=== PATIENT | male | born 1945 | race Caucasian/White ===

== ENCOUNTER 2017-07-21 17:01 | Observation (INO) | payer MEDICARE ==
[2017-07-21] MEDS ORDERED: NS 0.9% 1000 ML* 1,000 ML IV ONE (17:14)
[2017-07-21] MEDS ORDERED: Tetan/Diph/Pertus SYR(Tdap)* 0.5 ML SYR(BOOSTRIX) use SYR IM ONE (17:17)
[2017-07-21 17:59] LABS: Hematocrit 43 % (42-52); Hemoglobin 14.6 g/dl (14.0-18.0); Mean Corpuscular HGB Conc 34 g/dl (31-36); Mean Corpuscular Hemoglobin 32 pg (27-31); Mean Corpuscular Volume 95 fL (80-94); Mean Platelet Volume 10 um3 (7.4-10.4); Red Blood Count 4.52 10^6/ul (4.0-5.4); Red Cell Distribution Width 13 % (10.5-15)
[2017-07-21 18:07] LABS: Albumin 4.4 g/dL (3.2-5.2); BUN/Creatinine Ratio 19.2 (8-20); Calcium 9.2 mg/dL (8.6-10.3); EGFR African American 90.8 (>60); EGFR Non-African American 70.6 (>60); Globulin 3.1 g/dL (2-4); Magnesium 1.8 mg/dL (1.9-2.7); Potassium 3.8 mmol/L (3.5-5.0); Total Bilirubin 0.7 mg/dL (0.2-1.0); Total Protein 7.5 g/dL (6.4-8.9)
[2017-07-21 18:08] LABS: Troponin I 0.03 ng/mL (<0.04)
--- NOTE | 2017-07-21 18:16 | RAD ---
INDICATION: Head injury. COMPARISON: There are no prior studies available for comparison. TECHNIQUE: Contiguous axial sections of the brain were obtained from the skull base to the vertex without contrast. FINDINGS: The ventricles, cisterns and sulci are enlarged consistent with diffuse atrophy. There are multiple focal areas of decreased density in the subcortical and periventricular white matter suggestive of moderate to severe chronic small vessel ischemic changes. There appears to be old lacunar infarcts in the right caudate and lentiform nuclei. No other focal abnormality or mass effect is seen. There is no evidence for hemorrhage. No significant focal osseous abnormality is seen. There is an air-fluid level within the right maxillary sinus. IMPRESSION: 1. NO EVIDENCE FOR ACUTE INTRACRANIAL ABNORMALITY. 2. ATROPHY AND FINDINGS CONSISTENT WITH MODERATE TO SEVERE CHRONIC SMALL VESSEL ISCHEMIC CHANGES. 3. OLD LACUNAR INFARCTS. 4. AIR-FLUID LEVEL WITHIN THE RIGHT MAXILLARY SINUS.
--- NOTE | 2017-07-21 18:23 | RAD ---
INDICATION: Syncope, head injury. COMPARISON: There are no prior studies available for comparison. TECHNIQUE: Contiguous axial sections were obtained from the skull base through the T1 vertebra. Images were reconstructed in the sagittal and coronal planes. There is motion artifact present limiting the study. FINDINGS: The vertebra are in normal alignment. No prevertebral soft tissue swelling or fracture is seen. At the C2-C3 level there is mild posterior uncinate process spurring. There is facet osteoarthritic change. No significant spinal canal narrowing is present. There is mild neural foraminal narrowing on the right side and moderate neural foraminal narrowing on the left side. At the C3-C4 level there is mild posterior uncinate process spurring and hypertrophic changes within the right facet joint. No significant spinal canal narrowing is present. There is moderate bilateral neural foraminal narrowing. At the C4-C5 level there is mild posterior uncinate process spurring. There are moderate hypertrophic changes within the facet joint on the right side. No significant spinal canal narrowing is present. There is moderate bilateral neural foraminal narrowing. At the C5-C6 level no significant spinal canal narrowing is present. There is mild bilateral neural foraminal narrowing. At C6-C7 level there is mild uncinate process spurring. No significant spinal canal or neural foraminal narrowing is seen. IMPRESSION: 1. SLIGHTLY LIMITED EXAM, NO EVIDENCE FOR FRACTURE OR SUBLUXATION. 2. MILD TO MODERATE CERVICAL SPONDYLOSIS.
--- NOTE | 2017-07-21 18:30 | RAD ---
INDICATION: Syncope, facial trauma. COMPARISON: There are no prior studies available for comparison. TECHNIQUE: Contiguous axial sections of the axial images of the facial bones were obtained and reconstructed in the coronal and sagittal planes. FINDINGS: Soft tissue swelling is noted anterior to the frontal bones, orbits and maxillary and mandible. The loo of the orbits appear intact. There is a nondisplaced fracture involving the posterolateral wall of the right maxillary sinus. The zygomatic arches appear intact. There is no evidence for a fracture of the mandible. The nasal bones appear intact. There is moderate deviation of the nasal septum toward the right side. The pterygoid plates appear intact. There is a air-fluid level within the right maxillary sinus consistent with the patient's fracture. The paranasal sinuses and mastoid air cells otherwise appear clear. IMPRESSION: NONDISPLACED FRACTURE OF THE POSTEROLATERAL WALL OF THE RIGHT MAXILLARY SINUS.
[2017-07-21] MEDS ORDERED: Amoxicillin/Clavulanate TAB* 875 MG PO ONE (18:34)
[2017-07-21 18:44] LABS: TSH (Thyroid Stimulating Horm) 1.16 mcIU/mL (0.34-5.60)
--- NOTE | 2017-07-21 18:56 | RAD ---
INDICATION: Syncope. COMPARISON: There are no prior studies available for comparison. TECHNIQUE: AP and lateral views of the chest were obtained. FINDINGS: The patient is status post median sternotomy and cardiac valve surgery. The heart appears mildly enlarged. The lungs are hyperinflated with flattening of the diaphragms and appear clear. No pleural effusion is seen. IMPRESSION: 1. POSTSURGICAL CHANGES. 2. FINDINGS CONSISTENT WITH COPD, NO EVIDENCE FOR ACUTE FINDING.
--- NOTE | 2017-07-21 19:03 | RAD ---
INDICATION: Right hand injury. TECHNIQUE: 4 views of the right hand were obtained. FINDINGS: There is an oblique fracture of the mid to distal diaphysis of the fifth metacarpal. The distal fragment is displaced slightly anterior and demonstrates anterior angulation relative the proximal fragment. No other fractures are seen. IMPRESSION: OBLIQUE SLIGHTLY DISPLACED AND ANGULATED FRACTURE OF THE FIFTH METACARPAL.
--- NOTE | 2017-07-21 19:07 | RAD ---
INDICATION: Left hand injury. TECHNIQUE: 4 views of the left hand were obtained. FINDINGS: There is mild deformity of the distal aspect of the fifth proximal phalanx most consistent with an old healed fracture. No acute fracture is seen. IMPRESSION: NO EVIDENCE FOR ACUTE FRACTURE.
[2017-07-21] MEDS ORDERED: Dextrose 50% Syringe 50 ML* 25 GM/50 ML SYRINGE IV PUSH PRN (20:06)
[2017-07-21] MEDS ORDERED: Magnesium Sulfate 1 GM IV* 1 GM/100 ML BAG IV ONE (20:31)
[2017-07-21 21:00] LABS: Urine Bilirubin Negative (Negative); Urine Glucose 1+(50 mg/dL) (Negative); Urine Nitrite Negative (Negative)
[2017-07-21] MEDS ORDERED: Nortriptyline CAP* 25 MG PO SCH (21:00)
[2017-07-21] MEDS ORDERED: Digoxin TAB* 0.25 MG PO SCH (21:00)
[2017-07-21] MEDS ORDERED: Enalapril TAB* 20 MG PO SCH (21:00)
[2017-07-21] MEDS ORDERED: Donepezil TAB* 5 MG PO SCH (21:00)
[2017-07-21] MEDS ORDERED: Citalopram TAB* 20 MG PO SCH (21:00)
[2017-07-21 21:17] LABS: Benzodiazepine Urine Screen None Detected (None Detect)
[2017-07-21] MEDS ORDERED: Morphine INJ* 2 MG/ML 1 ML CARPUJECT IV ONE (21:18)
[2017-07-21] MEDS: Acetaminophen TAB* 325 MG PO PRN (23:38)
[2017-07-21] MEDS: hydrALAZINE TAB* 25 MG PO SCH (23:40)
[2017-07-21] MEDS: Insulin LISPRO* 1 UNITS UNIT SUBCUT SCH (23:42)
--- NOTE | 2017-07-21 23:52 | HP ---
CC: Dr. Nieto * HISTORY AND PHYSICAL: DATE OF ADMISSION: 07/21/17 PRIMARY CARE PROVIDER: Dr. Nieto from [place], [place] CHIEF COMPLAINT: Status post fall, questionable syncope. HISTORY OF PRESENT ILLNESS: Hemal Garcia is a 72-year-old male with a history of dementia, atrial fibrillation, diabetes, who was at a [employer] game today with his friend and he stumbled when he walked down the hill, fell down on his face and his both hands. The patient's friend witnessed the fall and stated that the patient was going down a steep decline and he kept his hands in his pockets. He got off balance and before he fell, he was trying to break the fall and hold on to something in the nearest vicinity but did not find anything and fell on his face. The patient himself has dementia and does not remember what happened. The patient fractured his right fifth metacarpal distally as well as suffered from nondisplaced fracture of one of his maxillary sinus loo. He is going to be placed on overnight observation. Initially, there was a question of syncope. It does not appear that syncope was the mechanism of the patient's fall. In addition to the above mentioned, the patient is an alcoholic, drinks approximately a bottle and a half of wine a day and had been drinking at the game. PAST MEDICAL HISTORY: 1. Dementia. 2. History of chronic atrial fibrillation. 3. Diabetes type 2. 4. Hypertension. 5. Status post TAVR in March 2016. 6. Coronary artery disease with 2 stents and coronary artery bypass grafting in 2012. 7. Alcoholism. 8. History of 2 strokes in the past. MEDICATIONS: Include: 1. Aricept 10 mg daily. 2. Bumetanide 2 mg daily. 3. Celexa 20 mg daily. 4. Atorvastatin 80 mg daily. 5. Coumadin 5 mg daily. 6. Nortriptyline 25 mg daily at night. 7. Hydralazine 25 mg b.i.d. 8. Digoxin 0.25 mg daily. 9. Enalapril 10 mg in the morning, 20 at night. 10. Vitamin B12, 100 units daily. 11. Metoprolol tartrate 200 mg daily in the morning. 12. Vitamin D 1000 units daily. 13. "Stool softener" 1 in the morning. 14. Insulin Levemir 78 units in the morning. 15. Insulin Humalog 48 units in the morning and 50 at night. ALLERGIES: No known drug allergies. FAMILY HISTORY: Positive for history of hypertension and diabetes in father. The patient's mother is 95, still alive, lives in a "locked dementia unit." SOCIAL HISTORY: The patient denies any tobacco or drug use. He had been an alcoholic most of his life. He drank hard liquor in the past and recently switched to wine. He drinks approximately a bottle and a half of wine a day. He is retired, lives with his who is his surrogate. REVIEW OF SYSTEMS: Please see history of present illness. The patient is not really able to give me any information. He feels well. He is "sore" in his right face when he suffered the fracture. There is no history of recent chest pain. His sugars had been rather well controlled. All of the remaining 12 systems were reviewed and are otherwise negative or unobtainable. PHYSICAL EXAMINATION GENERAL: The patient is a pleasant 72-year-old male who is obese and in no acute distress. The patient is alert, oriented to self and his date of . He is oriented to location, current date, and his age. He is a very poor historian. VITAL SIGNS: Blood pressure 139/50, heart rate of 71 and irregularly irregular , respiratory rate 22, oxygen saturation 94% on room air, temperature of 96.9. HEENT: Head is atraumatic. The patient's face has multiple abrasions on the right side of the face. His right eye area is swollen from the contusion after a fall. He also has abrasions surrounding his right cheek and right lips area. Eyes: Extraocular movements are intact. Pupils are equal, reactive to light and accommodation. Oropharynx clear. Mucosa moist. NECK: Supple. No JVD, no bruits bilaterally. RESPIRATORY: Clear to auscultation bilaterally. CARDIOVASCULAR: Irregularly irregular rhythm. No murmur. ABDOMEN: Obese, protuberant, soft, nontender. Bowel sounds present in all 4 quadrants. EXTREMITIES: There is trace bilateral pedal edema. Pulses are +2 bilaterally. There is no clubbing or cyanosis. The patient has abrasions noted on all of the knuckles on both of his hands. They are all superficial. NEUROLOGIC: Speech clear. Cranial nerves II through XII grossly intact. Motor strength is 5/5 bilaterally. SKIN: Evaluation of the skin as mentioned above. LABORATORY DATA/DIAGNOSTIC STUDIES: White blood cell count 12.3, hemoglobin is 14.6, hematocrit 43, and platelets of 201,000. INR is pending at the time of dictation. Sodium 135, potassium 3.8, chloride 97, carbon dioxide 24, anion gap of 14, BUN 20, creatinine 1.04. Liver function tests show mild elevation of AST of 49, otherwise unremarkable. Brain natriuretic peptide was 255. Lactic acid of 3.7. TSH was 1.16 and troponin was 0.03. Alcohol level was 110. Right hand x-ray showed oblique, slightly displaced and angulated fracture of the fifth metatarsal on the right. Maxillofacial CT, impression: "Nondisplaced fracture of the posterolateral wall of the right maxillary sinus." Portable chest x-ray, impression: "Postsurgical changes. Findings consistent with COPD. No evidence of acute findings." C-spine CT, impression: "Slightly limited exam. No evidence of fracture or subluxation. Mild to moderate cervical spondylosis." Brain CT, impression: "No evidence of acute intracranial abnormality. Atrophy and findings consistent with moderate to severe chronic small vessel ischemic changes. Old lacunar infarcts. Air-fluid level within the right maxillary sinus." The patient's EKG showed atrial fibrillation with a heart rate of 79 beats per minute with ST depressions in V4 to V6. There was no EKG available for comparison. There are also ST depressions in the inferior leads. ASSESSMENT AND PLAN: A 72-year-old male who sustained a fall while intoxicated with alcohol at a [employer] game. At this point, I do not believe that the patient needs to be further worked up for syncope. Due to his dementia, the patient basically does not remember what happened, but there is a witness who stated that the patient did not lose consciousness. He merely fell and hit his head. Due to the patient being on Coumadin, he is going to be placed on overnight observation with neuro checks every 2 hours. His INR is still pending at the time of dictation. 1. For hypertension, metoprolol, enalapril, hydralazine are going to be continued. 2. For dyslipidemia, his atorvastatin is going to be continued. 3. In regards to the patient's atrial fibrillation, the patient is going to be continued on digoxin. He is rate controlled. I will place him on telemetry monitored bed overnight. His Coumadin likely is going to be held for the next 24 hours. 4. For the patient's dementia, donepezil is going to be continued. 5. In regards to the patient's diabetes, the patient is going to be placed on insulin sliding scale and insulin Lantus at a low dose. 6. In regards to the patient's alcoholism, at this point, I will place him on Ativan p.r.n. The patient did have history of withdrawing in the past and some of them were "bad." In fact, when the patient had his coronary artery bypass grafting in 2012, the patient's stated that he was actually treated with alcohol throughout his bypass surgery. 7. In 2015, when the patient had his aortic valve replacement, he did well with some signs of withdrawal, but not severe. Once again, Ativan p.r.n. is going to instituted. 8. For DVT prophylaxis, the patient is likely anticoagulated with Coumadin. INR is pending at the time of dictation. 9. For his right right fifth metacarpal fracture, Dr. Kim from the emergency department is going to splint the patient's hand. He needs to follow up with orthopedic physician of his choice in [facility] in approximately 4 to 7 days. 10. For his sinus fracture, the patient is going to be placed on Augmentin for prophylaxis. It is recommended for the patient to be on Augmentin prophylaxis for 10 days. TIME SPENT: Approximately 65 minutes was spent on admission of this patient, more than half that time was spent [id number] with the patient and the patient 's during the interview and physical exam. [id number]/[facility] #: [id number] [facility] HEALTH PARTNERSBerta
[2017-07-22] MEDS ORDERED: Insulin GLARGINE(*) 1 UNITS UNIT SUBCUT SCH (01:00)
[2017-07-22] MEDS: Acetaminophen TAB* 325 MG PO PRN (04:55)
[2017-07-22 05:37] LABS: Hematocrit 39 % (42-52); Hemoglobin 13.4 g/dl (14.0-18.0); Mean Corpuscular HGB Conc 34 g/dl (31-36); Mean Corpuscular Hemoglobin 33 pg (27-31); Mean Corpuscular Volume 96 fL (80-94); Mean Platelet Volume 10 um3 (7.4-10.4); Red Blood Count 4.07 10^6/ul (4.0-5.4); Red Cell Distribution Width 14 % (10.5-15); White Blood Count 13.9 10^3/ul (3.5-10.8)
[2017-07-22 05:44] LABS: Add Diff/Slide Review? Slide Review Added; Comments Flag Yes
[2017-07-22 05:54] LABS: BUN/Creatinine Ratio 22.4 (8-20); Calcium 8.7 mg/dL (8.6-10.3); EGFR African American 114.6 (>60); EGFR Non-African American 89.1 (>60)
[2017-07-22] MEDS: Insulin LISPRO* 1 UNITS UNIT SUBCUT SCH ×2 (08:49→12:39)
[2017-07-22] MEDS: hydrALAZINE TAB* 25 MG PO SCH (08:50)
[2017-07-22] MEDS ORDERED: Metoprolol Succinate XL TAB* 100 MG PO SCH (09:00)
[2017-07-22] MEDS ORDERED: Enalapril TAB* 20 MG PO SCH (09:00)
[2017-07-22] MEDS ORDERED: Metoprolol Tartrate TAB* 100 MG TAB PO SCH (09:00)
[2017-07-22] MEDS ORDERED: Amoxicillin/Clavulanate TAB* 500 MG PO SCH (09:00)
[2017-07-22] MEDS ORDERED: Bumetanide TAB* 2 MG PO SCH (09:00)
[2017-07-22 10:45] LABS: Digoxin 1.5 ng/ml (0.8-2.0)
--- NOTE | 2017-07-22 12:43 | DCNOTE ---
Subjective Date of Service: 07/22/17 Interval History: Some pain R hand with pressure on it, otherwise feels well. He does not remember falling or the arrival of the ambulance. Objective Active Medications: Acetaminophen (Tylenol Tab*) 650 mg PO Q4H PRN PRN Reason: FEVER/PAIN Last Admin: 07/22/17 04:55 Dose: 650 mg Amoxicillin/Clavulanate Potassium (Augmentin Tab*) 500 mg PO BID [facility] Last Admin: 07/22/17 08:50 Dose: 500 mg Atorvastatin Calcium (Lipitor*) 80 mg PO QPM [facility] Bumetanide (Bumex Tab*) 2 mg PO DAILY [facility] Last Admin: 07/22/17 08:50 Dose: 2 mg Citalopram Hydrobromide (Celexa Tab*) 20 mg PO BEDTIME [facility] Last Admin: 07/21/17 23:40 Dose: 20 mg Dextrose (D50w Syringe 50 Ml*) 12.5 gm IV PUSH .FOR FS < 60 - SS PRN PRN Reason: FS < 60 Digoxin (Lanoxin Tab*) 0.25 mg PO BEDTIME [facility] Last Admin: 07/21/17 23:41 Dose: 0.25 mg Donepezil HCl (Aricept Tab*) 10 mg PO BEDTIME [facility] Last Admin: 07/21/17 23:40 Dose: 10 mg Enalapril Maleate (Vasotec Tab*) 20 mg PO BEDTIME [facility] Last Admin: 07/21/17 23:40 Dose: 20 mg Enalapril Maleate (Vasotec Tab*) 10 mg PO DAILY [facility] Last Admin: 07/22/17 08:49 Dose: 10 mg Hydralazine HCl (Apresoline Tab*) 25 mg PO BID [facility] Last Admin: 07/22/17 08:50 Dose: 25 mg Insulin Glargine (Lantus(*)) 20 units SUBCUT Q24H [facility] Last Admin: 07/22/17 01:04 Dose: 20 units Insulin Human Lispro (Humalog*) 0 units SUBCUT ACHS [facility] PRN Reason: Protocol Last Admin: 07/22/17 08:49 Dose: 4 units Metoprolol Succinate (Toprol Xl Tab*) 100 mg PO DAILY [facility] Last Admin: 07/22/17 08:50 Dose: 100 mg Nortriptyline HCl (Pamelor Cap*) 25 mg PO BEDTIME [facility] Last Admin: 07/21/17 23:41 Dose: 25 mg Warfarin Sodium (Coumadin Tab(*)) 5 mg PO DAILY@1700 [facility] PRN Reason: Protocol Vital Signs 07/21/17 07/21/17 07/21/17 19:36 19:40 19:44 Temperature Pulse Rate 74 105 70 Respiratory 26 22 Rate Blood Pressure 135/63 135/91 140/73 (mmHg) O2 Sat by Pulse 94 93 94 Oximetry 07/21/17 07/21/17 07/21/17 20:00 21:23 22:09 Temperature 98.0 F Pulse Rate 72 71 Respiratory 22 20 Rate Blood Pressure 169/86 147/98 (mmHg) O2 Sat by Pulse 93 94 Oximetry 07/21/17 07/21/17 07/21/17 22:53 23:09 23:41 Temperature 99.1 F Pulse Rate 69 79 84 Respiratory 20 22 Rate Blood Pressure 158/73 176/78 (mmHg) O2 Sat by Pulse 97 94 Oximetry 07/21/17 07/22/17 07/22/17 23:55 00:02 04:14 Temperature 98.2 F 98.5 F 98.5 F Pulse Rate 62 76 73 Respiratory 16 20 16 Rate Blood Pressure 143/71 158/85 150/65 (mmHg) O2 Sat by Pulse 93 93 94 Oximetry 07/22/17 07:24 Temperature 98.5 F Pulse Rate 56 Respiratory 28 Rate Blood Pressure 127/62 (mmHg) O2 Sat by Pulse 96 Oximetry Oxygen Devices in Use Now: None Appearance: Alert, in good spirits. Supine in bed. Looks comfortable Eyes: No Scleral Icterus Neck: NL Appearance and Movements; NL JVP, No Thyroid Enlargement, Masses Respiratory: Symmetrical Chest Expansion and Respiratory Effort, Clear to Auscultation, Clear to Percussion Cardiovascular: NL Sounds; No Murmurs; No JVD, RRR, No Edema, - Extremities: No Edema, No Clubbing, Cyanosis, - - R 4th and 5th fingers bandaged. Skin: No Rash or Ulcers, No Nodules or Sclerosis, - Neurological: Alert and Oriented x 3, NL Sensation Result Diagrams: 07/22/17 05:14 07/22/17 05:14 Assess/Plan/Problems-Billing Assessment: Status and Disposition: Please see the discharge summary for a record of the hospital stay.
[2017-07-22 12:47] VITALS: BP 136/63
[2017-07-22] MEDS ORDERED: Warfarin TAB(*) 5 MG PO SCH (17:00)
[2017-07-22] MEDS ORDERED: Atorvastatin* 80 MG TAB PO SCH (18:00)
--- NOTE | 2017-07-22 23:17 | DS ---
DISCHARGE SUMMARY: DATE OF ADMISSION: 07/21/17 DATE OF DISCHARGE: 07/22/17 HISTORY OF PRESENT ILLNESS: This 72-year-old man presented after a fall, it is not really clear if he had syncope. His does not not accompany him. A friend bought him to a football game at [place]. They did some tailgating first , he had some alcoholic drinks, so he had a drink in the middle of the game. After the game, he walked down the hill next to [place], at which point, he lost his balance and fell. He may have had his hands in his pockets, which he often does too. The patient says that he does not remember falling and does not remember the ambulance coming. He does have dementia and it is not clear how much he would remember. I suspect the fall was caused by loss of balance and not by syncope. The patient sustained a nondisplaced fracture of the posterior wall of the right maxillary sinus as well as a fracture of his right fifth metacarpal. I note his blood alcohol level was 110 in the emergency room. His blood sugar on arrival was 256 and was 213 the next morning. I did not change the patient's medication regimen as he appeared to be doing satisfactory on this. His blood pressure and pulse were at acceptable range. Blood pressure averaging about 140/70 roughly and his heart rate mostly in the 60s. It is recommended that the patient be on amoxicillin clavulanate for 10 days and I sent in a prescription for this. He did get a dose in the hospital. Orthopedic followup was recommended in 4 to 7 days after his initial fall. This information was transmitted to the . FINAL DIAGNOSES: 1. Fall with questionable syncope. 2. Atrial fibrillation. 3. Dementia. 4. Diabetes. 5. Alcohol abuse. 6. Cerebrovascular accident. 7. Hypertension. 8. Status post TAVR in March 2016. 9. Coronary artery disease, status post coronary artery bypass graft in 2012. 10. Atrial fibrillation, on chronic warfarin anticoagulation. DISCHARGE MEDICATIONS: 1. Amoxicillin clavulanate 875 mg b.i.d. 2. Humalog 48 units daily as prescribed. 3. Levemir 78 units daily as prescribed. 4. Cholecalciferol 1000 units daily. 5. Vitamin B12 200 units daily. 6. Enalapril 20 mg h.s. and 10 mg daily. 7. Digoxin 0.25 mg at bedtime. 8. Hydralazine 25 mg b.i.d. 9. Nortriptyline 25 mg h.s. 10. Warfarin 5 mg daily in the evening. 11. Atorvastatin 80 mg daily in the evening. 12. Donepezil 10 mg h.s. 13. Citalopram 20 mg h.s. 14. Bumetanide 2 mg daily. 15. Stool softener as prescribed. 16. Humalog 50 mg at bedtime. The patient will get an INR every Sunday for the next 2 weeks. An hepatitis C and HIV tests were drawn because of medical personnel exposures to the patient's blood. The hepatitis C antibody was negative. HIV testing is pending at this time. [id number]/[facility] #: [id number] LUIS ANGEL
--- NOTE | 2017-07-24 13:37 | ED ---
Caroline Elise Edward, scribed for Ananda Murphy MD on 07/21/17 at 1716 . Syncope/Near Syncope - HPI Summary HPI Summary: 72 y/o male BIBRenetta c/o sudden onset face pain and R hand pain s/p syncopal episode earlier today. The pt was walking on the sidewalk when he had LOC. Pt fell onto his face and hands. Pt has multiple abrasions on his face and both hands. The symptoms are not aggravated or alleviated by anything. Denies neck pain, MOSELEY, CP, SOB or palpitations. PMHx memory-impaired, DM, AFIB, stents. - History Of Current Complaint Chief Complaint: EDSyncope Time Seen by Provider: 07/21/17 17:10 Hx Obtained From: Patient Onset/Duration: Sudden Onset Timing: Frequency Of Episodes - 1 Context: Loss Of Consciousness Activity At Onset: Other - walking Associated Head Trauma: Yes Aggravating Factor(s): Nothing Alleviating Factor(s): Nothing Associated Signs And Symptoms: Pain - Face pain and R hand pain - Allergies/Home Medications Allergies/Adverse Reactions: Allergies Allergy/AdvReac Type Severity Reaction Status Date / Time No Known Allergies Allergy Verified 07/21/17 17:19 PMH/Surg Hx/FS Hx/Imm Hx Previously Healthy: No Endocrine/Hematology History: Reports: Hx Diabetes Cardiovascular History: Reports: Hx Atrial Fibrillation Neurological History: Reports: Other Neuro Impairments/Disorders - memory impaired - Cancer History Cancer Type, Location and Year: None - Surgical History Surgery Procedure, Year, and Place: stents - Family History Known Family History: Positive: Unknown - Social History Occupation: Retired Review of Systems Constitutional: Negative Eyes: Negative ENT: Negative Cardiovascular: Negative Respiratory: Negative Gastrointestinal: Negative Genitourinary: Negative Musculoskeletal: Other - face pain, R hand pain Skin: Other - abrasions at face and both hands Positive: Syncope Psychological: Normal All Other Systems Reviewed And Are Negative: Yes Physical Exam - Summary Physical Exam Summary: VITAL SIGNS: Reviewed. GENERAL: Patient is a well-developed and nourished male who is lying comfortable in the stretcher. Patient is not in any acute respiratory distress. HEAD AND FACE: Mutiple abrasions. No ecchymosis, hematomas or skull depressions. No sinus tenderness. EYES: PERRLA, EOMI x 2, No injected conjunctiva, no nystagmus. EARS: Hearing grossly intact. Ear canals and tympanic membranes are within normal limits. MOUTH: Oropharynx within normal limits. NECK: Supple, trachea is midline, no adenopathy, no JVD, no carotid bruit, no c- spine tenderness, neck with full ROM. CHEST: Symmetric, no tenderness at palpation LUNGS: Clear to auscultation bilaterally. No wheezing or crackles. CVS: Regular rate and rhythm, S1 and S2 present, no murmurs or gallops appreciated. ABDOMEN: Soft, non-tender. No signs of distention. No rebound no guarding, and no masses palpated. Bowel sounds are normal. EXTREMITIES: FROM in all major joints, no edema, no cyanosis or clubbing. Multiple abrasions on both hands. NEURO: Alert and oriented x 2 at baseline. No acute neurological deficits. Speech is normal and follows commands. SKIN: Dry and warm. Triage Information Reviewed: Yes Vital Signs Reviewed: Yes Diagnostics - Laboratory Result Diagrams: 07/21/17 17:32 07/21/17 17:32 Lab Statement: Any lab studies that have been ordered have been reviewed, and results considered in the medical decision making process. - Radiology CXR Xray Interpretation: Positive (See Comments) - 1. POSTSURGICAL CHANGES. 2. FINDINGS CONSISTENT WITH COPD, NO EVIDENCE FOR ACUTE FINDING. Radiology Interpretation Completed By: Radiologist L HAND XR Xray Interpretation: No Acute Changes - NO FRACTURE/DISLOCATION Radiology Interpretation Completed By: Radiologist R HAND XR Xray Interpretation: No Acute Changes - NO FRACTURE/DISLOCATION Radiology Interpretation Completed By: Radiologist - CT BRAIN CT CT Interpretation: No Acute Changes - 1. NO EVIDENCE FOR ACUTE INTRACRANIAL ABNORMALITY. 2. ATROPHY AND FINDINGS CONSISTENT WITH MODERATE TO SEVERE CHRONIC SMALL VESSEL ISCHEMIC CHANGES. 3. OLD LACUNAR INFARCTS. 4. AIR-FLUID LEVEL WITHIN THE RIGHT MAXILLARY SINUS. CT Interpretation Completed By: Radiologist CSPINE CT CT Interpretation: No Acute Changes - 1. SLIGHTLY LIMITED EXAM, NO EVIDENCE FOR FRACTURE OR SUBLUXATION. 2. MILD TO MODERATE CERVICAL SPONDYLOSIS. CT Interpretation Completed By: Radiologist MAXILLOFACIAL CT CT Interpretation: Positive (See Comments) - NONDISPLACED FRACTURE OF THE POSTEROLATERAL WALL OF THE RIGHT MAXILLARY SINUS. CT Interpretation Completed By: Radiologist - EKG 1 EKG Interpretation: 16:55 - AFIB @ [address] ELEVATIONS Course/Dx Assessment/Plan: 72 y/o male SHELBI c/o sudden onset face pain and R hand pain s/ p syncopal episode earlier today. The pt was walking on the sidewalk when he had LOC. Pt fell onto his face and hands. Pt has multiple abrasions on his face and both hands. The symptoms are not aggravated or alleviated by anything. Denies neck pain, MOSELEY, CP, SOB or palpitations. PMHx memory-impaired, DM, AFIB, stents. BRAIN CT SHOWS 1. NO EVIDENCE FOR ACUTE INTRACRANIAL ABNORMALITY. 2. ATROPHY AND FINDINGS CONSISTENT WITH MODERATE TO SEVERE CHRONIC SMALL VESSEL ISCHEMIC CHANGES. 3. OLD LACUNAR INFARCTS. 4. AIR-FLUID LEVEL WITHIN THE RIGHT MAXILLARY SINUS. CSPINE CT SHOWS 1. SLIGHTLY LIMITED EXAM, NO EVIDENCE FOR FRACTURE OR SUBLUXATION. 2. MILD TO MODERATE CERVICAL SPONDYLOSIS. MAXILLOFACIAL CT SHOWS NONDISPLACED FRACTURE OF THE POSTEROLATERAL WALL OF THE RIGHT MAXILLARY. SINUS. EKG 16:55 - AFIB @ [address] ELEVATIONS. Test show WBC 12, lactic acid 3.7, glucose 256, BNP 255. In the ED course the pt was given IV fluids for his hyperglycemia. His abrasions were cleaned with saline and we applied triple abx. Pt was given a tetanus vaccine. Since the pt had a syncopal episode, I discussed my physical exam and findings with Dr. Rebolledo. The pt has a maxillofacial fracture; otherwise the pt is stable. - Diagnoses Provider Diagnoses: Episode of syncope, maxillofacial fracture - Physician Notifications Discussed Care of Patient With: Kj Rebolledo Time Discussed With Above Provider: 19:00 Instructed by Provider To: Admit As Inpatient Discharge - Discharge Plan Condition: Stable Disposition: ADMITTED TO [facility] Referrals: Non Staff,Doctor [Primary Care Provider] - The documentation as recorded by the Caroline anaya Edward accurately reflects the service I personally performed and the decisions made by me, Ananda Murphy MD.
== END 2017-07-22 13:35 | disposition home or self-care (01) ==
LOC: ED 17:01 → MEDTELE 19:19
PROVIDERS: ADMIT Internal Medicine; ATTEND Internal Medicine
DX: S02.401A Maxillary fracture, unspecified side, initial encounter for closed fracture (principal); S62.306A Unspecified fracture of fifth metacarpal bone, right hand, initial encounter for closed fracture; S00.11XA Contusion of right eyelid and periocular area, initial encounter; W18.39XA Other fall on same level, initial encounter; Y92.480 Sidewalk as the place of occurrence of the external cause; I48.2 Chronic atrial fibrillation; Z79.01 Long term (current) use of anticoagulants; E11.65 Type 2 diabetes mellitus with hyperglycemia; Z79.4 Long term (current) use of insulin; Z79.899 Other long term (current) drug therapy; J44.9 Chronic obstructive pulmonary disease, unspecified; I10 Essential (primary) hypertension; R55 Syncope and collapse; I67.2 Cerebral atherosclerosis; F10.229 Alcohol dependence with intoxication, unspecified; E78.5 Hyperlipidemia, unspecified; F03.90 Unspecified dementia, unspecified severity, without behavioral disturbance, psychotic disturbance, mood disturbance, and anxiety; Z11.4 Encounter for screening for human immunodeficiency virus [HIV]; Z95.2 Presence of prosthetic heart valve; I25.10 Atherosclerotic heart disease of native coronary artery without angina pectoris; Z95.5 Presence of coronary angioplasty implant and graft; R41.3 Other amnesia; Z86.73 Personal history of transient ischemic attack (TIA), and cerebral infarction without residual deficits; M47.892 Other spondylosis, cervical region; Y90.5 Blood alcohol level of 100-119 mg/100 ml
CPT/HCPCS: 36415; 70450; 70486; 71020; 72125; 80048; 80053; 80074; 80162; 80307; 80320; 81003; 83605; 83735; 83880; 84443; 84484; 85025; 85610; 86703; 90471; 90715; 93005; 99284; A9270-GY; G0378; G0480; J2270; J3475